=== PATIENT | female | born 1980 | race Caucasian/White ===

== ENCOUNTER 2018-07-31 11:44 | Outpatient (CLI) | payer OTHER ==
[2018-07-31] MEDS ORDERED: PROTONIX40 M1 PO ×2 (16:49→17:01)
[2018-07-31] MEDS ORDERED: TOPROL XL25 M1 (16:50)
[2018-07-31] MEDS ORDERED: ZYRTEC10 M3 PO (17:01)
[2018-07-31] MEDS ORDERED: [UNRECOGNIZED DRUG - OTHER] PO (17:01)
[2018-07-31] MEDS ORDERED: EFFEXOR XR75 MG PO (17:02)
[2018-07-31] MEDS ORDERED: ATIVAN1 M1 PO (17:02)
[2018-07-31] MEDS ORDERED: EFFEXOR XR37.5 MG PO (17:02)
[2018-07-31] MEDS ORDERED: LIBRAX PO (17:03)
[2018-07-31] MEDS ORDERED: PROBIOTIC1 EAC2 PO (17:03)
[2018-07-31] MEDS ORDERED: MULTIVITAMINS1 EAC9 PO (17:04)
== END 2018-07-31 12:51 | disposition home or self-care (01) ==
LOC: EDBD 11:44 → LAB 11:44
DX: K64.2 Third degree hemorrhoids (principal); K64.4 Residual hemorrhoidal skin tags; K92.1 Melena

== ENCOUNTER 2018-07-31 17:02 | Outpatient (CLI) | payer OTHER ==
[~2018-07-31 17:02] MED LIST: ATIVAN1 M1 PO; EFFEXOR XR37.5 MG PO; EFFEXOR XR75 MG PO; PROTONIX40 M1 PO; TOPROL XL25 M1; ZYRTEC10 M3 PO; [UNRECOGNIZED DRUG - OTHER] PO
[2018-07-31] MEDS ORDERED: LIBRAX PO (17:03)
[2018-07-31] MEDS ORDERED: PROBIOTIC1 EAC2 PO (17:03)
[2018-07-31] MEDS ORDERED: MULTIVITAMINS1 EAC9 PO (17:04)
== END 2018-07-31 17:06 | disposition home or self-care (01) ==
LOC: LAB 17:02
DX: R10.9 Unspecified abdominal pain (principal)

== ENCOUNTER 2018-08-02 10:24 | Day surgery (SDC) | payer OTHER ==
[~2018-08-02 10:24] MED LIST changes: +LIBRAX PO; +MULTIVITAMINS1 EAC9 PO; +PROBIOTIC1 EAC2 PO
== END 2018-08-02 18:50 | disposition home or self-care (01) ==
LOC: CIR.AMB 10:24
DX: K64.8 Other hemorrhoids (principal); K64.4 Residual hemorrhoidal skin tags

== ENCOUNTER 2018-11-18 21:11 | Emergency (ER) | payer OTHER ==
[~2018-11-18] VITALS: Ht 152.4 cm; Wt 50.8 kg
[2018-11-18] MEDS ORDERED: CLONAZEPAM0.5 MG (21:47)
[2018-11-18] MEDS ORDERED: EFFEXOR XR150 MG (21:48)
[2018-11-18] MEDS ORDERED: CLONAZEPAM1 MG (21:49)
[2018-11-19] MEDS ORDERED: DICLOFENAC SOD100 MG PO (05:14)
[2018-11-19] MEDS ORDERED: ULTRAM50 MG PO (05:14)
== END 2018-11-19 06:53 | disposition home or self-care (01) ==
LOC: ER 21:11
DX: N83.291 Other ovarian cyst, right side (principal); R10.31 Right lower quadrant pain